=== PATIENT | male | born 1965 | race Caucasian/White ===

== ENCOUNTER → 2016-12-10 09:46 | Outpatient (CLI) | payer MEDICARE ==
[2014-11-17 10:17] VITALS: BMI 29.2
[~2016-12-10 09:46] MED LIST: ADVAIR 100/501 DISK INH; AMBIEN10 MG PO; ARICEPT5 MG PO; BUSPAR10 MG PO; COREG 3.1253.125 MG PO; DEPAKOTE ER500 MG PO; GABAPENTIN100 MG PO; LISINOPRIL2.5 MG PO; PAXIL20 MG PO; PLAVIX75 MG PO; PRAVACHOL40 MG PO; SEROQUEL200 MG PO; VENTOLIN HFA18 GM INH
== END | disposition home or self-care (01) ==
LOC: D.US 09:46
DX: I65.23 Occlusion and stenosis of bilateral carotid arteries (principal)

== ENCOUNTER → 2016-12-18 08:36 | Outpatient (CLI) | payer MEDICARE ==
[2014-11-17 10:17] VITALS: BMI 29.2
== END | disposition home or self-care (01) ==
LOC: D.CT 08:36
DX: I65.23 Occlusion and stenosis of bilateral carotid arteries (principal)